=== PATIENT | female | born 1970 ===

== ENCOUNTER → 2016-06-25 | Outpatient (CLI) | payer BC ==
--- NOTE | ~2016-06-25 | SLE ---
[facility] [place] [address] POLYSOMNOGRAPHY STUDY Name: OSMAN KEMP Room #: [facility].#: [id number] Admission: 06/25/16 Attend Phys: Jen Sandra MD Discharge: Date of : 72 Report #: [id number] THIS REPORT FOR: //name// CC: hCelita Ortez MD HISTORY: A 45-year-old, height 5 feet 5-1/2 inches, weight 162 pounds, usually goes to bed between 10 and 10:30, gets out of bed 5 to 5:30, feels refreshed. Positive history of snoring. Mcmechen sleepiness scale is a 4. Prior study February 2016 showed an apnea-hypopnea index of 17 events per recording hour. Supine 19, left lateral 0 events per hour, low oxygen saturation 79%, spending 2% of recording time less than 90%. CPAP TITRATION: Titrated at 5, 6 and 8 cm water pressure. At 8 cm water pressure, the patient was seen for 118 minutes of which 40 minutes was in REM sleep. Apnea hypopnea index 0 events per sleep hour, low sat of 95%. CPAP was increased secondary to snoring. In morning questionnaire, patient related same. IMPRESSION: 1. Obstructive sleep apnea/hypopnea, G47.33. 2. Snoring. 3. CPAP improves the patient's apnea-hypopnea index, snoring and desaturation. The patient was seen in supine REM sleep. SUGGESTIONS: 1. In addition to specific therapy, the patient should be cautioned regarding driving or operating dangerous machinery unless fully alert. The patient should be cautioned regarding the use of respiratory depressants. 2. Further evaluation regarding etiology of snoring is recommended. 3. Oral appliance or appropriate surgery may be considered with followup. 4. An auto titrating CPAP between 5 and 10 cm water pressure is initially recommended, especially if plans on attempting to lose weight. 5. Alternatively, the patient may be placed at 8 cm water pressure. 6. During our study, a [employer] [place] mask was used with heated humidity and C-Flex of 3. 7. If signs and symptoms not improve with therapy, further evaluation is recommended. Please do not hesitate to contact me if I may be of further assistance. <ELECTRONICALLY SIGNED> By: Jen Sandra MD 06/26/161909 20 49 Jen Sandra MD /nt
== END ==
LOC: SLEEPLAB 14:07
DX: G47.33 Obstructive sleep apnea (adult) (pediatric) (principal); R06.83 Snoring